=== PATIENT | female | born 1970 | race Caucasian/White ===

== ENCOUNTER 2016-04-26 18:04 | Emergency (ER) | payer MEDICAID ==
[~2016-04-26] VITALS: Ht 172.7 cm; Wt 97.5 kg
[~2016-04-26 18:04] MED LIST: ARIP20TA5; CITA-73; TRAM50TA2 PO
[2016-04-26 20:32] VITALS: BP 178/92
[2016-04-26] MEDS ORDERED: methylPREDNISolone SOD SUCC 125 MG/2 ML VL IM ONE (21:00)
[2016-04-26] MEDS ORDERED: KETOROLAC TROMETH 60MG/2ML VIAL IM ONE (21:00)
== END 2016-04-26 21:34 | disposition home or self-care (01) ==
LOC: ER 18:23
DX: M54.16 Radiculopathy, lumbar region (principal); I10 Essential (primary) hypertension; G89.29 Other chronic pain; M54.5 Low back pain; F17.210 Nicotine dependence, cigarettes, uncomplicated
CPT/HCPCS: 96372; 99284; J1885; J2930

== ENCOUNTER 2017-08-26 16:54 | Emergency (ER) | payer MEDICAID ==
[~2017-08-26] VITALS: Ht 172.7 cm; Wt 120.2 kg
[~2017-08-26 16:54] MED LIST changes: +ARIP1TAB7; -ARIP20TA5
[2017-08-26 17:11] VITALS: BP 167/84
== END 2017-08-26 19:35 | disposition home or self-care (01) ==
LOC: ER 16:54
DX: I10 Essential (primary) hypertension (principal)

== ENCOUNTER 2017-09-20 15:22 | Emergency (ER) | payer MEDICAID ==
[~2017-09-20] VITALS: Ht 172.7 cm; Wt 122.9 kg
[2017-09-20 16:26] VITALS: BP 165/85
== END 2017-09-20 17:10 | disposition home or self-care (01) ==
LOC: ER 15:31
DX: G89.29 Other chronic pain (principal); M54.5 Low back pain; I10 Essential (primary) hypertension; F17.210 Nicotine dependence, cigarettes, uncomplicated; E66.9 Obesity, unspecified; Z68.41 Body mass index [BMI] 40.0-44.9, adult; Z79.899 Other long term (current) drug therapy; Z76.0 Encounter for issue of repeat prescription